=== PATIENT | female | born 1970 | race Two or more races ===

== ENCOUNTER 2019-04-24 10:42 | Emergency (ER) | payer OTHER ==
[~2019-04-24] VITALS: Ht 149.9 cm; Wt 58.0 kg
[2019-04-24] MEDS ORDERED: SODIUM CHLORIDE FLUSH 10ML SYR IVF ONE (11:30)
[2019-04-24] MEDS ORDERED: KETOROLAC 30 MG/1 ML IVPush ONE (11:30)
[2019-04-24] MEDS ORDERED: SODIUM CHLORIDE 0.9% 1,000ML IVBOLUS ONE (11:30)
[2019-04-24] MEDS ORDERED: FAMOTIDINE 20 MG/2 ML IVP ONE (11:30)
[2019-04-24] MEDS ORDERED: ONDANSETRON 2MG/ML, 2ML IVPush ONE (11:30)
--- NOTE | 2019-04-24 11:35 | NUR ---
ASSUMED CARE OF PT AT HIS TIME. PT C/O ABD CRAMPING, N/V/D SINCE YESTERDAY WITH SEVERAL CULPRITS INCLUDING BUFFETT AND CINNABONS. PT ON MONITOR. WILL MEDICATE ORDERED.
[2019-04-24 11:41] LABS: BASOPHILS % (AUTO) 0 % (0-1); EOSINOPHILS # (AUTO) 0.02 x10^3/uL (0-0.4); EOSINOPHILS % (AUTO) 0 % (1-7); LYMPHOCYTES # (AUTO) 0.66 x10^3/uL (1-3.4); LYMPHOCYTES % (AUTO) 6 % (22-44); MD NO; MEAN CORPUSCULAR HEMOGLOBIN 29.1 pg (27.0-34.8); MEAN CORPUSCULAR HGB CONC 32.8 g/dL (32.4-35.8); MEAN CORPUSCULAR VOLUME 88.7 fL (80-100); MEAN PLATELET VOLUME 7.4 fL (7.4-10.4); MONOCYTES % (AUTO) 4 % (2-9); NEUTROPHILS # (AUTO) 9.36 x10^3/uL (1.8-6.8); NEUTROPHILS % (AUTO) 90 % (42-75); PLATELET COUNT 196 x10^3/uL (130-400); RED BLOOD COUNT 4.81 x10^6/uL (3.82-5.3); RED CELL DISTRIBUTION WIDTH 13.7 % (9.6-15.2)
[2019-04-24] MEDS ORDERED: ONDANSETRON 2MG/ML, 2ML ONE (11:46)
[2019-04-24] MEDS ORDERED: FAMOTIDINE 20 MG/2 ML ONE (11:46)
[2019-04-24] MEDS ORDERED: KETOROLAC 30 MG/1 ML ONE (11:46)
[2019-04-24 11:52] LABS: ALANINE AMINOTRANSFERASE 26 U/L (12-78); ANION GAP 8 mmol/L (5-15); CHLORIDE 107 mmol/L (98-107); CREATININE 0.84 mg/dL (0.55-1.02)
[2019-04-24 11:54] LABS: ALKALINE PHOSPHATASE 52 U/L (45-117); BILIRUBIN,TOTAL 0.4 mg/dL (0.2-1.0); TOTAL PROTEIN 7.3 g/dL (6.4-8.2)
[2019-04-24 12:28] LABS: HCG UR SG 1.022 (1.003-1.030); MICROSCOPIC INDICATED
[2019-04-24 12:36] LABS: CULTURE INDICATED? NO
[2019-04-24 12:48] VITALS: BP 107/62
== END 2019-04-24 12:51 | disposition home or self-care (01) ==
LOC: ED 12:44
DX: R10.84 Generalized abdominal pain (principal); R11.2 Nausea with vomiting, unspecified; R19.7 Diarrhea, unspecified
CPT/HCPCS: 36415; 74021; 80053; 81001; 81025; 83690; 85025; 93005; 96361; 96374; 96375; 99284; J1885; J2405; J3490; J7030

== ENCOUNTER 2019-04-24 18:11 | Inpatient (IN) | payer OTHER ==
[~2019-04-24] VITALS: Ht 149.9 cm; Wt 56.3 kg
[2019-04-28 12:39] VITALS: BP 141/89
== END 2019-04-28 15:09 | disposition home or self-care (01) | DRG 390 ==
LOC: ED 18:50 → EDIP 21:36 → 3NE 21:59
PROVIDERS: ADMIT Internal Medicine; ATTEND Internal Medicine
PROC: 0D9630Z Drainage of Stomach with Drainage Device, Percutaneous Approach (ICD-10-PCS; principal; 2019-04-25)
DX: K56.51 Intestinal adhesions [bands], with partial obstruction (principal); E86.0 Dehydration; E87.6 Hypokalemia; Z85.830 Personal history of malignant neoplasm of bone; Z92.21 Personal history of antineoplastic chemotherapy; D18.03 Hemangioma of intra-abdominal structures; Z83.3 Family history of diabetes mellitus; Z88.5 Allergy status to narcotic agent; Z88.8 Allergy status to other drugs, medicaments and biological substances
CPT/HCPCS: 36415; 74018; 74177; 74250; 80048; 80053; 83690; 83735; 84100; 85025; 93005; 96372; 96374; 96375; G0378; J1885; J2405; J2550; J3480; Q9967; C9113; J2765; J7120